=== PATIENT | male | born 1985 | race Hispanic/Latino ===

== ENCOUNTER 2017-02-27 21:48 | Emergency (ER) | payer MEDICAID ==
[2017-02-27 22:10] VITALS: BP 138/68; PULSE 96; RESP 18; TEMP 99.5; O2SAT 96
--- NOTE | 2017-02-27 22:25 | ED PDOC ---
Upper Extremity Pain/Injury Time Seen by Provider: 02/27/17 22:10 Chief Complaint (Nursing): Upper Extremity Problem/Injury Chief Complaint (Provider): Right elbow pain and swelling History Per: Patient History/Exam Limitations: no limitations Onset/Duration Of Symptoms: Days (2) Additional Complaint(s): Patient is a 31 year old male presenting to the emergency department for right elbow pain and swelling x 2 days. The swelling decreased since onset but redness worsened, which prompted visit to ED. Denies fever, numbness, tingling, or trauma. PCP: Joe Oden Past Medical History Reviewed: Historical Data, Nursing Documentation, Vital Signs Vital Signs: Last Vital Signs Temp 99.5 F 02/27/17 22:06 Pulse 96 H 02/27/17 22:06 Resp 18 02/27/17 22:06 BP 138/68 02/27/17 22:06 Pulse Ox 96 02/27/17 22:06 - Medical History PMH: No Chronic Diseases - Surgical History Surgical History: No Surg Hx - Family History Family History: States: No Known Family Hx - Social History Current smoker - smoking cessation education provided: Yes (less than 10 cigarettes per day) Alcohol: None Drugs: Denies - Home Medications Home Medications: Ambulatory Orders Medication Instructions Recorded Clindamycin [Cleocin] 300 mg PO Q6 #28 cap 02/27/17 - Allergies Allergies/Adverse Reactions: Allergies Allergy/AdvReac Type Severity Reaction Status Date / Time amoxicillin Allergy RASH Verified 02/27/17 22:06 sulfamethoxazole Allergy RASH Verified 02/27/17 22:06 [From Bactrim] trimethoprim [From Bactrim] Allergy RASH Verified 02/27/17 22:06 Review of Systems ROS Statement: Except As Marked, All Systems Reviewed And Found Negative Constitutional: Negative for: Fever, Other (Trauma) Musculoskeletal: Positive for: Other (Right elbow pain and swelling) Neurological: Negative for: Numbness, Other (Tingling) Physical Exam - Reviewed Nursing Documentation Reviewed: Yes Vital Signs Reviewed: Yes - Physical Exam Appears: Positive for: Well, Non-toxic, No Acute Distress Head Exam: Positive for: ATRAUMATIC, NORMAL INSPECTION, NORMOCEPHALIC Skin: Positive for: Normal Color, Warm, Dry. Negative for: Rash Neck: Positive for: Normal, Supple Pulses-Radial (L): 2+ Pulses-Radial (R): 2+ Extremity: Positive for: Normal ROM (Full active ROM of right elbow), Capillary Refill (is less than 2 seconds on right upper extremity), Swelling (Minimal swelling on right elbow without fluctuance and induration), Other (Moderate erythema on right elbow. No break in skin integrity.) Neurologic/Psych: Positive for: Alert, Oriented. Negative for: Aphasia, Facial Droop - Laboratory Results Result Diagrams: 02/27/17 22:58 02/27/17 22:58 - ECG O2 Sat by Pulse Oximetry: 96 (RA) Pulse Ox Interpretation: Normal - Radiology X-Ray: Interpreted by Me (R elbow x-ray) X-Ray Interpretation: No Acute Disease - Progress ED Course And Treament: Case d/w Dr. England prior to discharge who agrees with plan. Pt. instructed to take Clindamycin as prescribed, f/u with PMD in 2 days, return to ED if symptoms worsen or if fever develops. Pt. verbalized understanding of necessary f/u and will do so as such. Medical Decision Making Medical Decision Makin:26 Initial Impression: Right elbow pain and swelling Initial Plan: * Labs * Cleocin 600 mg IV * Blood culture * IV Insertion * X-Ray Right Elbow * Reevaluation Scribe Attestation: Documented by Fabiola Buckley, acting as a scribe for Micky Jacobsen PA-C. Provider Scribe Attestation: All medical record entries made by the Scribe were at my direction and personally dictated by me. I have reviewed the chart and agree that the record accurately reflects my personal performance of the history, physical exam, medical decision making, and the department course for this patient. I have also personally directed, reviewed, and agree with the discharge instructions and disposition. Disposition - Clinical Impression Clinical Impression: Cellulitis - Patient ED Disposition Is Patient to be Admitted: No - Disposition Disposition: Routine/Home Disposition Time: 23:39 Condition: STABLE Additional Instructions: FOLLOW UP WITH YOUR PMD IN 2 DAYS FOR WOUND CHECK. RETURN TO ED IMMEDIATELY IF REDNESS WORSENS OR IF TEMPERATURE OF 100.4 OR ABOVE DEVELOPS. COMPLETE YOUR ANTIBIOTICS PRESCRIBED. Prescriptions: Clindamycin [Cleocin] 300 mg PO Q6 #28 cap Instructions: Cellulitis (ED)
[2017-02-27] MEDS ORDERED: Clindamycin 600 MG in Sodium Chloride 0.9% 100 ML IVPB SCH (22:30)
[2017-02-27 23:06] LABS: BASO % 0.3 % (0.0-2.0); EOS # 0.1 K/uL (0.0-0.7); HEMOGLOBIN 13.5 g/dL (12.0-18.0); LYMPH # 1.7 K/uL (1.0-4.3); LYMPH % 18.3 % (20.0-40.0); MEAN CELL VOLUME 87.1 fl (80.0-94.0); MEAN CORPUSCULAR HEMOGLOBIN 29.5 pg (27.0-31.0); MEAN CORPUSCULAR HGB CONC 33.8 g/dL (33.0-37.0); MEAN PLATELET VOLUME 8.8 fl (7.2-11.7); MONO # 0.6 K/uL (0.0-0.8); MONO % 6.9 % (0.0-10.0); NEUT # 6.8 K/uL (1.8-7.0); NEUT % 73.5 % (50.0-75.0); NRBC % 0.1 % (0.0-0.0); RBC 4.58 Mil/uL (4.40-5.90); RED CELL DISTRIBUTION WIDTH 13.1 % (11.5-14.5); WHITE BLOOD COUNT 9.2 K/uL (4.8-10.8)
[2017-02-27 23:14] LABS: ALB/GLOB RATIO 1.6 (1.0-2.1); ALBUMIN 4.3 g/dL (3.5-5.0); ALT/SGPT 42 U/L (21-72); AST/SGOT 24 U/L (17-59); BLOOD UREA NITROGEN 17 mg/dl (9-20); CALCIUM 9.3 mg/dL (8.4-10.2); GFR AFRICAN-AMERICAN > 60; GFR NON-AFRICAN AMERICAN > 60
--- NOTE | 2017-02-28 14:24 | RAD ---
HISTORY: pain COMPARISON: No prior FINDINGS: BONES: Normal. No fracture. JOINTS: Normal. No osteoarthritis. SOFT TISSUE: Normal. OTHER FINDINGS: None . IMPRESSION: Normal Bone Xray.
== END 2017-02-28 00:45 | disposition home or self-care (01) ==
LOC: H.ER 21:48
DX: L03.113 Cellulitis of right upper limb (principal); F17.210 Nicotine dependence, cigarettes, uncomplicated